=== PATIENT | female | born 1965 | race Caucasian/White ===

== ENCOUNTER 2020-03-10 23:12 | Observation (INO) | payer BC ==
[2020-03-11] MEDS ORDERED: MORPHINE SULFATE 2 MG INJ IV ONE (00:17)
[2020-03-11] MEDS ORDERED: Zofran 4 MG/2 ML VIAL IV ONE (00:17)
[2020-03-11] MEDS ORDERED: Sodium Chloride 0.9% 1000 ML 1,000 ML IV STA (00:17)
--- NOTE | 2020-03-11 00:23 | ERPHSYRPT ---
- History of Present Illness Time Seen by Provider: 03/11/20 01:00 Historian: patient Physician History: Patient is a 54-year-old female presents to our ED with complaints of epigastric pain. Pain started approximately 11 days ago. Pain resolved and recurred 4 days ago. Pain described as an ache that is well localized to the epigastrium. Patient has been tolerating her pain for the past 4 days. She is here tonight because she vomited twice and unable to hold food at this time. No trauma. No fevers. No diarrhea. No rash. No history of the same. Symptoms are mild to moderate in intensity. No specific worsening or improving factors. Patient voices no other complaints at this time. Timing/Duration: day(s) (4 days ago.) Activities at Onset: none Quality: aching Abdominal Pain Onset Location: epigastric Pain Radiation: no radiation Severity of Pain-Max: moderate Severity of Pain-Current: mild Modifying Factors: Improves With: movement Associated Symptoms: No chest pain, No diaphoresis, No diarrhea, No fever/chills, No headache, No heartburn, No neck pain, No shortness of breath, No testicular pain, No vomiting Previous symptoms: no prior history Allergies/Adverse Reactions: No Known Drug Allergies Allergy (Unverified 03/10/20 23:57) - Review of Systems Constitutional: No Symptoms, No Fever, No Chills Eyes: No Symptoms Ears, Nose, & Throat: No Symptoms Respiratory: No Symptoms, No Cough, No Dyspnea Cardiac: No Symptoms, No Chest Pain, No Edema, No Syncope Abdominal/Gastrointestinal: No Symptoms, No Abdominal Pain, No Nausea, No Vomiting, No Diarrhea Genitourinary Symptoms: No Symptoms, No Dysuria Musculoskeletal: No Symptoms, No Back Pain, No Neck Pain Skin: No Symptoms, No Rash Neurological: No Symptoms, No Dizziness, No Focal Weakness, No Sensory Changes Psychological: No Symptoms Endocrine: No Symptoms Hematologic/Lymphatic: No Symptoms Immunological/Allergic: No Symptoms All Other Systems: Reviewed and Negative - Nursing Vital Signs Nursing Vital Signs: Initial Vital Signs Temperature 98.3 F 03/10/20 23:59 Pulse Rate 84 03/10/20 23:59 Blood Pressure 163/99 03/10/20 23:59 O2 Sat by Pulse Oximetry 96 03/10/20 23:59 Pain Scale Pain Intensity 8 - Physical Exam General Appearance: no apparent distress, alert Eye Exam: PERRL/EOMI, eyes nml inspection Ears, Nose, Throat Exam: normal ENT inspection, pharynx normal, moist mucous membranes Neck Exam: normal inspection, non-tender, supple, full range of motion Respiratory Exam: normal breath sounds, lungs clear, No respiratory distress Cardiovascular Exam: regular rate/rhythm, normal heart sounds Gastrointestinal/Abdomen Exam: soft, tenderness, other (Epigastric tenderness to palpation. No rebound or peritoneal signs. Negative Oxford sign negative Diaz Potter sign.), No mass Back Exam: normal inspection, normal range of motion, No CVA tenderness, No vertebral tenderness Extremity Exam: normal inspection, normal range of motion, pelvis stable Neurologic Exam: alert, oriented x 3, cooperative, normal mood/affect, nml cerebellar function, sensation nml, No motor deficits Skin Exam: normal color, warm, dry SpO2 Interpretation: normal SpO2: 98 O2 Delivery: Room Air - Course Nursing assessment & vital signs reviewed: Yes EKG Interpreted by Me: RATE (72), Sinus Rhythm, NORMAL AXIS, NORMAL INTERVALS - CT Exams Abdomen/Pelvis CT Interpretation: Tele-radiologist Report (Findings most likely represent acute cholecystitis. There is a small amount of gas in the urinary bladder. Please correlate for evidence of infection or recent catheterization.) Ordered Tests: Active Orders 24 hr Category Date Time Status EKG-ER Only STAT Care 03/11/20 00:17 Active IV Insertion STAT Care 03/11/20 00:17 Active ABDOMEN AND PELVIS W CONTRAST [CT] Stat Exams 03/11/20 00:18 Taken CBC W DIFF Stat Lab 03/11/20 00:34 Completed CMP Stat Lab 03/11/20 00:34 Completed CULTURE,URINE Stat Lab 03/11/20 00:34 Received LIPASE Stat Lab 03/11/20 00:34 Completed TROPONIN Q3H Lab 03/11/20 00:34 Completed TROPONIN Q3H Lab 03/11/20 03:36 Received TROPONIN Q3H Lab 03/11/20 06:30 Ordered TROPONIN Q3H Lab 03/11/20 09:30 Ordered TROPONIN Q3H Lab 03/11/20 12:30 Ordered UA W/RFX UR CULTURE Stat Lab 03/11/20 00:34 Completed Transfer Order Routine Transfer 03/11/20 Ordered Medication Summary Generic Name Dose Route Start Last Admin Trade Name Freq PRN Reason Stop Dose Admin Levofloxacin/Dextrose 500 mg in 100 mls @ 100 mls/hr 03/11/20 04:00 Levofloxacin 500mg/100ml D5w IV 03/11/20 04:59 STAT STA Discontinued Medications Generic Name Dose Route Start Last Admin Trade Name Leesa PRN Reason Stop Dose Admin Sodium Chloride 1,000 mls @ 999 mls/hr 03/11/20 00:17 03/11/20 01:34 Sodium Chloride 0.9% 1000 Ml IV 03/11/20 01:17 Infused .Q1H1M STA Infusion Sodium Chloride Confirm 03/11/20 00:32 Sodium Chloride 0.9% 1000 Ml Administered 03/11/20 00:33 Dose 1,000 mls @ ud .ROUTE .STK-MED ONE Metronidazole 500 mg in 100 mls @ 200 mls/hr 03/11/20 04:01 Flagyl 500 Mg Ivpb IV 03/11/20 04:30 STAT STA Morphine Sulfate 2 mg 03/11/20 00:17 03/11/20 00:36 Morphine Sulfate 2 Mg Inj IV 03/11/20 00:18 2 mg STAT ONE Administration Morphine Sulfate Confirm 03/11/20 00:32 Morphine Sulfate 2 Mg Inj Administered 03/11/20 00:33 Dose 2 mg .ROUTE .STK-MED ONE Morphine Sulfate 4 mg 03/11/20 02:18 03/11/20 02:22 Morphine Sulfate 4 Mg Inj IV 03/11/20 02:19 4 mg STAT ONE Administration Morphine Sulfate Confirm 03/11/20 02:21 Morphine Sulfate 4 Mg Inj Administered 03/11/20 02:22 Dose 4 mg .ROUTE .STK-MED ONE Morphine Sulfate 4 mg 03/11/20 04:00 Morphine Sulfate 4 Mg Inj IV 03/11/20 04:01 STAT ONE Ondansetron HCl 4 mg 03/11/20 00:17 03/11/20 00:37 Zofran 4 Mg/2 Ml Vial IV 03/11/20 00:18 4 mg STAT ONE Administration Ondansetron HCl Confirm 03/11/20 00:31 Zofran 4 Mg/2 Ml Vial Administered 03/11/20 00:32 Dose 4 mg .ROUTE .STK-MED ONE Lab/Rad Data: Laboratory Result Diagrams 03/11/20 00:34 03/11/20 00:34 Laboratory Results 03/11/20 03/11/20 03/11/20 Range/Units 00:34 00:34 00:34 WBC (4.0-10.5) K/mm3 RBC (4.1-5.4) M/mm3 Hgb (12.0-16.0) gm/dl Hct (35-47) % MCV (78-100) fl MCH (26-32) pg MCHC (32-36) g/dl RDW (11.5-14.0) % Plt Count (150-450) K/mm3 MPV (7.5-11.0) fl Gran % (36.0-66.0) % Eos # (Auto) (0-0.5) Absolute Lymphs (auto) (1.0-4.6) Absolute Monos (auto) (0.0-1.3) Lymphocytes % (24.0-44.0) % Monocytes % (0.0-12.0) % Eosinophils % (0.00-5.0) % Basophils % (0.0-0.4) % Absolute Granulocytes (1.4-6.9) Basophils # (0-0.4) Sodium 136 L (137-145) mmol/L Potassium 4.0 (3.5-5.1) mmol/L Chloride 102 (98-107) mmol/L Carbon Dioxide 26 (22-30) mmol/L Anion Gap 13.3 (5-15) MEQ/L BUN 13 (7-17) mg/dL Creatinine 0.67 (0.52-1.04) mg/dL Estimated GFR > 60.0 ML/MIN Glucose 126 H (74-106) mg/dL Calcium 9.6 (8.4-10.2) mg/dL Total Bilirubin 1.00 (0.2-1.3) mg/dL AST 24 (14-36) U/L ALT 17 (0-35) U/L Alkaline Phosphatase 86 (38-126) U/L Troponin I < 0.012 (0.000-0.034) ng/mL Serum Total Protein 7.7 (6.3-8.2) g/dL Albumin 4.5 (3.5-5.0) g/dL Lipase 66 (23-300) U/L Urine Color YELLOW (YELLOW) Urine Appearance SLIGHTLY CLOUDY (CLEAR) Urine pH 6.0 (5-6) Ur Specific [place] 1.019 (1.005-1.025) Urine Protein NEGATIVE (Negative) Urine Ketones NEGATIVE (NEGATIVE) Urine Blood MODERATE (0-5) Ruben/ul Urine Nitrite NEGATIVE (NEGATIVE) Urine Bilirubin NEGATIVE (NEGATIVE) Urine Urobilinogen NEGATIVE (0-1) mg/dL Ur Leukocyte Esterase TRACE (NEGATIVE) Urine WBC (Auto) 6-10 (0-5) /HPF Urine RBC (Auto) 6-10 (0-2) /HPF U Epithel Cells (Auto) RARE (FEW) /HPF Urine Bacteria (Auto) NONE (NEGATIVE) /HPF Urine Mucus (Auto) SLIGHT (NEGATIVE) /HPF Urine Culture Reflexed YES (NO) Urine Glucose NEGATIVE (NEGATIVE) mg/dL 03/11/20 Range/Units 00:34 WBC 16.0 H (4.0-10.5) K/mm3 RBC 4.83 (4.1-5.4) M/mm3 Hgb 13.6 (12.0-16.0) gm/dl Hct 42.2 (35-47) % MCV 87.4 (78-100) fl MCH 28.2 (26-32) pg MCHC 32.2 (32-36) g/dl RDW 14.9 H (11.5-14.0) % Plt Count 322 (150-450) K/mm3 MPV 11.2 H (7.5-11.0) fl Gran % 83.6 H (36.0-66.0) % Eos # (Auto) 0.07 (0-0.5) Absolute Lymphs (auto) 1.61 (1.0-4.6) Absolute Monos (auto) 0.93 (0.0-1.3) Lymphocytes % 10.0 L (24.0-44.0) % Monocytes % 5.8 (0.0-12.0) % Eosinophils % 0.4 (0.00-5.0) % Basophils % 0.2 (0.0-0.4) % Absolute Granulocytes 13.38 H (1.4-6.9) Basophils # 0.03 (0-0.4) Sodium (137-145) mmol/L Potassium (3.5-5.1) mmol/L Chloride (98-107) mmol/L Carbon Dioxide (22-30) mmol/L Anion Gap (5-15) MEQ/L BUN (7-17) mg/dL Creatinine (0.52-1.04) mg/dL Estimated GFR ML/MIN Glucose (74-106) mg/dL Calcium (8.4-10.2) mg/dL Total Bilirubin (0.2-1.3) mg/dL AST (14-36) U/L ALT (0-35) U/L Alkaline Phosphatase (38-126) U/L Troponin I (0.000-0.034) ng/mL Serum Total Protein (6.3-8.2) g/dL Albumin (3.5-5.0) g/dL Lipase (23-300) U/L Urine Color (YELLOW) Urine Appearance (CLEAR) Urine pH (5-6) Ur Specific Clinton (1.005-1.025) Urine Protein (Negative) Urine Ketones (NEGATIVE) Urine Blood (0-5) Ruben/ul Urine Nitrite (NEGATIVE) Urine Bilirubin (NEGATIVE) Urine Urobilinogen (0-1) mg/dL Ur Leukocyte Esterase (NEGATIVE) Urine WBC (Auto) (0-5) /HPF Urine RBC (Auto) (0-2) /HPF U Epithel Cells (Auto) (FEW) /HPF Urine Bacteria (Auto) (NEGATIVE) /HPF Urine Mucus (Auto) (NEGATIVE) /HPF Urine Culture Reflexed (NO) Urine Glucose (NEGATIVE) mg/dL - Progress Progress: improved Progress Note: 03/11/20 04:21 Patient reassessed. Pain improved. Work-up reveals a cholelithiasis with a large gall stone sitting in the neck of the gallbladder. There may be superimposed cholecystitis. Patient additionally has a urinary tract infection. Pain well controlled. Antibiotics infused. We will admit patient to Dr. Doyle. Dr. Doyle admission to observation. Patient agrees to admission to [facility] for further evaluation and treatment. Patient voices no other complaints concerns at this time. Discussed with : Chase Will see patient in: hospital (observation) Counseled pt/family regarding: lab results, diagnosis, need for follow-up, rad results - Departure Departure Disposition: Observation Clinical Impression: Cholecystitis, Cholelithiasis, UTI (urinary tract infection) Condition: Stable Critical Care Time: No Referrals: MARY VICKERS MD [Primary Care Provider] -
[2020-03-11] MEDS ORDERED: Zofran 4 MG/2 ML VIAL ONE (00:31)
[2020-03-11] MEDS ORDERED: Sodium Chloride 0.9% 1000 ML 1,000 ML ONE (00:32)
[2020-03-11] MEDS ORDERED: MORPHINE SULFATE 2 MG INJ ONE (00:32)
[2020-03-11 00:37] LABS: Absolute Neutrophil Ct (ANC) 13.38 (1.4-6.9); BASOPHIL % 0.2 % (0.0-0.4); Basophil (Absolute #) 0.03 (0-0.4); Eosinophil % 0.4 % (0.00-5.0); Eosinophil (Absolute #) 0.07 (0-0.5); Hematocrit 42.2 % (35-47); Hemoglobin 13.6 gm/dl (12.0-16.0); Lymphocyte (Absolute #) 1.61 (1.0-4.6); Mean Cell Volume 87.4 fl (78-100); Mean Corpuscular Hemoglobin 28.2 pg (26-32); Mean Corpuscular Hgb Concent. 32.2 g/dl (32-36); Mean Platelet Volume 11.2 fl (7.5-11.0); Monocyte (Absolute #) 0.93 (0.0-1.3); Monocytes % 5.8 % (0.0-12.0); Neutrophil % 83.6 % (36.0-66.0); Platelet Count 322 K/mm3 (150-450); Red Blood Count 4.83 M/mm3 (4.1-5.4); Red Cell Distribution Width 14.9 % (11.5-14.0)
[2020-03-11 00:43] LABS: Appearance SLIGHTLY CLOUDY (CLEAR); Bilirubin NEGATIVE (NEGATIVE); Blood MODERATE Ery/ul (0-5); Epithelial Cells RARE /HPF (FEW); Glucose NEGATIVE (NEGATIVE); Ketones NEGATIVE (NEGATIVE); Leukocyte Esterase TRACE (NEGATIVE); Mucus SLIGHT /HPF (NEGATIVE); Nitrite NEGATIVE (NEGATIVE); Protein,Urine Dip NEGATIVE (Negative); Specific Gravity 1.019 (1.005-1.025); Urobilinogen NEGATIVE mg/dL (0-1)
[2020-03-11 00:53] LABS: ALBUMIN 4.5 g/dL (3.5-5.0); ALKALINE PHOSPHATASE 86 U/L (38-126); ANION GAP 13.3 MEQ/L (5-15); BLOOD UREA NITROGEN 13 mg/dL (7-17); CHLORIDE 102 mmol/L (98-107); Calcium 9.6 mg/dL (8.4-10.2); Carbon Dioxide 26 mmol/L (22-30); Creatinine 1 0.67 mg/dL (0.52-1.04); Glucose 126 mg/dL (74-106); LIPASE 66 U/L (23-300); SGOT/AST 24 U/L (14-36); SGPT/ALT 17 U/L (0-35); SODIUM 136 mmol/L (137-145); Total Protein 7.7 g/dL (6.3-8.2)
[2020-03-11] MEDS ORDERED: MORPHINE SULFATE 4 MG INJ IV ONE ×2 (02:18→04:00)
[2020-03-11] MEDS ORDERED: MORPHINE SULFATE 4 MG INJ ONE ×2 (02:21→04:32)
[2020-03-11] MEDS ORDERED: Levofloxacin 500MG/100ML D5W 500 MG/100 ML BAG IV STA (04:00)
[2020-03-11] MEDS ORDERED: FLAGYL 500 MG IVPB 500 MG/100 ML BAG IV STA (04:01)
[2020-03-11] MEDS ORDERED: Levofloxacin 500MG/100ML D5W 500 MG/100 ML BAG IV ONE (04:33)
[2020-03-11] MEDS ORDERED: FLAGYL 500 MG IVPB 500 MG/100 ML BAG IV ONE (04:33)
[2020-03-11] MEDS ORDERED: MORPHINE SULFATE 4 MG INJ IV PRN (05:52)
[2020-03-11] MEDS: Sodium Chloride 0.9% 1000 ML 1,000 ML IV SCH ×2 (05:58→16:25)
[2020-03-11] MEDS: DILAUDID 2 MG INJECTION IV PRN ×7 (07:26→23:12)
--- NOTE | 2020-03-11 08:44 | PCM.HP ---
History of Present Illness - Chief Complaint Chief Complaint: cholelithiasis Date: 03/11/20 History of Present Illness: is a 54 year old female. - Review of Systems Constitutional: No Fever, No Chills Eyes: No Symptoms Ears, Nose, & Throat: No Symptoms Respiratory: No Cough, No Short Of Breath Cardiac: No Chest Pain, No Edema, No Syncope Abdominal/Gastrointestinal: Abdominal Pain, Nausea, Vomiting, No Diarrhea Genitourinary Symptoms: No Dysuria Musculoskeletal: No Back Pain, No Neck Pain Skin: No Rash Neurological: No Dizziness, No Focal Weakness, No Sensory Changes Psychological: No Symptoms Endocrine: No Symptoms Hematologic/Lymphatic: No Symptoms Immunological/Allergic: No Symptoms Medications & Allergies Home Medications: Home Medication List Ergocalciferol (Vitamin D2) [Vitamin D] 1 mg PO DAILY 03/11/20 [History Confirmed 03/11/20] Allergies/Adverse Reactions: Allergies Allergy/AdvReac Type Severity Reaction Status Date / Time No Known Drug Allergies Allergy Unverified 03/10/20 23:57 - Past Medical History Past Medical History: No Neurological History: No Pertinent History ENT History: No Pertinent History Cardiac History: No Pertinent History Respiratory History: No Pertinent History Endocrine Medical History: No Pertinent History Musculoskelatal History: No Pertinent History GI Medical History: No Pertinent History History: No Pertinent History Pyscho-Social History: No Pertinent History Reproductive Disorders: No Pertinent History - Female History Are you now?: No - Past Surgical History Past Surgical History: Yes Neuro Surgical History: No Pertinent History Cardiac History: No Pertinent History Respiratory Surgery: No Pertinent History GI Surgical History: No Pertinent History Genitourinary Surgical Hx: No Pertinent History Musculskeletal Surgical Hx: No Pertinent History Female Surgical History: Hysterectomy Other Surgical History: 3- c sections - Social History Smoking Status: Never smoker Exposure to second hand smoke: No Alcohol: None Drug Use: none - Physical Exam Vital Signs: Vital Signs - 24 hr Temp Pulse Resp BP Pulse Ox 03/11/20 08:03 99.0 F 82 16 185/84 93 L 03/11/20 06:12 98.8 F 84 18 189/79 96 03/11/20 05:52 96 03/11/20 05:48 98.8 F 84 18 189/79 96 03/11/20 05:15 79 175/100 96 03/11/20 04:30 98 03/11/20 04:25 79 168/109 96 03/11/20 03:26 79 176/97 98 03/11/20 02:14 74 165/96 99 03/11/20 01:05 73 174/108 97 03/10/20 23:59 98.3 F 84 163/99 96 General Appearance: no apparent distress, alert Neurologic Exam: alert, oriented x 3, cooperative, normal mood/affect, nml cere bellar function, nml station & gait, sensation nml, No motor deficits Eye Exam: PERRL/EOMI, eyes nml inspection Ears, Nose, Throat Exam: normal ENT inspection, TMs normal, pharynx normal, moist mucous membranes Neck Exam: normal inspection, non-tender, supple, full range of motion Respiratory Exam: normal breath sounds, lungs clear, No respiratory distress Cardiovascular Exam: regular rate/rhythm, normal heart sounds, normal peripheral pulses Gastrointestinal/Abdomen Exam: soft, normal bowel sounds, tenderness, No distention, No mass Back Exam: normal inspection, normal range of motion, No CVA tenderness, No vertebral tenderness Extremity Exam: normal inspection, normal range of motion, pelvis stable Skin Exam: normal color, warm, dry, No rash Lymphatic Exam: No adenopathy Results - Labs Lab/Micro Results: Lab Results-Last 24 Hours 03/11/20 03/11/20 03/11/20 Range/Units 00:34 00:34 00:34 WBC 16.0 H (4.0-10.5) K/mm3 RBC 4.83 (4.1-5.4) M/mm3 Hgb 13.6 (12.0-16.0) gm/dl Hct 42.2 (35-47) % MCV 87.4 (78-100) fl MCH 28.2 (26-32) pg MCHC 32.2 (32-36) g/dl RDW 14.9 H (11.5-14.0) % Plt Count 322 (150-450) K/mm3 MPV 11.2 H (7.5-11.0) fl Gran % 83.6 H (36.0-66.0) % Eos # (Auto) 0.07 (0-0.5) Absolute Lymphs (auto) 1.61 (1.0-4.6) Absolute Monos (auto) 0.93 (0.0-1.3) Lymphocytes % 10.0 L (24.0-44.0) % Monocytes % 5.8 (0.0-12.0) % Eosinophils % 0.4 (0.00-5.0) % Basophils % 0.2 (0.0-0.4) % Absolute Granulocytes 13.38 H (1.4-6.9) Basophils # 0.03 (0-0.4) Sodium 136 L (137-145) mmol/L Potassium 4.0 (3.5-5.1) mmol/L Chloride 102 (98-107) mmol/L Carbon Dioxide 26 (22-30) mmol/L Anion Gap 13.3 (5-15) MEQ/L BUN 13 (7-17) mg/dL Creatinine 0.67 (0.52-1.04) mg/dL Estimated GFR > 60.0 ML/MIN Glucose 126 H (74-106) mg/dL Calcium 9.6 (8.4-10.2) mg/dL Total Bilirubin 1.00 (0.2-1.3) mg/dL AST 24 (14-36) U/L ALT 17 (0-35) U/L Alkaline Phosphatase 86 (38-126) U/L Troponin I < 0.012 (0.000-0.034) ng/mL Serum Total Protein 7.7 (6.3-8.2) g/dL Albumin 4.5 (3.5-5.0) g/dL Lipase 66 (23-300) U/L Urine Color (YELLOW) Urine Appearance (CLEAR) Urine pH (5-6) Ur Specific Seg[place] (1.005-1.025) Urine Protein (Negative) Urine Ketones (NEGATIVE) Urine Blood (0-5) Ruben/ul Urine Nitrite (NEGATIVE) Urine Bilirubin (NEGATIVE) Urine Urobilinogen (0-1) mg/dL Ur Leukocyte Esterase (NEGATIVE) Urine WBC (Auto) (0-5) /HPF Urine RBC (Auto) (0-2) /HPF U Epithel Cells (Auto) (FEW) /HPF Urine Bacteria (Auto) (NEGATIVE) /HPF Urine Mucus (Auto) (NEGATIVE) /HPF Urine Culture Reflexed (NO) Urine Glucose (NEGATIVE) mg/dL 03/11/20 03/11/20 03/11/20 Range/Units 00:34 03:36 06:45 WBC (4.0-10.5) K/mm3 RBC (4.1-5.4) M/mm3 Hgb (12.0-16.0) gm/dl Hct (35-47) % MCV (78-100) fl MCH (26-32) pg MCHC (32-36) g/dl RDW (11.5-14.0) % Plt Count (150-450) K/mm3 MPV (7.5-11.0) fl Gran % (36.0-66.0) % Eos # (Auto) (0-0.5) Absolute Lymphs (auto) (1.0-4.6) Absolute Monos (auto) (0.0-1.3) Lymphocytes % (24.0-44.0) % Monocytes % (0.0-12.0) % Eosinophils % (0.00-5.0) % Basophils % (0.0-0.4) % Absolute Granulocytes (1.4-6.9) Basophils # (0-0.4) Sodium (137-145) mmol/L Potassium (3.5-5.1) mmol/L Chloride (98-107) mmol/L Carbon Dioxide (22-30) mmol/L Anion Gap (5-15) MEQ/L BUN (7-17) mg/dL Creatinine (0.52-1.04) mg/dL Estimated GFR ML/MIN Glucose (74-106) mg/dL Calcium (8.4-10.2) mg/dL Total Bilirubin (0.2-1.3) mg/dL AST (14-36) U/L ALT (0-35) U/L Alkaline Phosphatase (38-126) U/L Troponin I < 0.012 < 0.012 (0.000-0.034) ng/mL Serum Total Protein (6.3-8.2) g/dL Albumin (3.5-5.0) g/dL Lipase (23-300) U/L Urine Color YELLOW (YELLOW) Urine Appearance SLIGHTLY CLOUDY (CLEAR) Urine pH 6.0 (5-6) Ur Specific [place] 1.019 (1.005-1.025) Urine Protein NEGATIVE (Negative) Urine Ketones NEGATIVE (NEGATIVE) Urine Blood MODERATE (0-5) Ruben/ul Urine Nitrite NEGATIVE (NEGATIVE) Urine Bilirubin NEGATIVE (NEGATIVE) Urine Urobilinogen NEGATIVE (0-1) mg/dL Ur Leukocyte Esterase TRACE (NEGATIVE) Urine WBC (Auto) 6-10 (0-5) /HPF Urine RBC (Auto) 6-10 (0-2) /HPF U Epithel Cells (Auto) RARE (FEW) /HPF Urine Bacteria (Auto) NONE (NEGATIVE) /HPF Urine Mucus (Auto) SLIGHT (NEGATIVE) /HPF Urine Culture Reflexed YES (NO) Urine Glucose NEGATIVE (NEGATIVE) mg/dL - Radiology Impressions Radiology Exams & Impressions: Radiology Procedures Category Date Time Status ABDOMEN AND PELVIS W CONTRAST [CT] Stat Exams 03/11/20 00:18 Taken GALLBLADDER [US] Routine Exams 03/11/20 08:03 Taken Assessment/Plan (1) Cholecystitis Current Visit: Yes Status: Acute Assessment & Plan: IV antibiotics Code(s): K81.9 - CHOLECYSTITIS, UNSPECIFIED (2) Cholelithiasis Current Visit: Yes Status: Acute Assessment & Plan: confirm with u/s, consult surgery (3) UTI (urinary tract infection) Current Visit: Yes Status: Acute Assessment & Plan: Iv antibiotics Code(s): N39.0 - URINARY TRACT INFECTION, SITE NOT SPECIFIED
--- NOTE | 2020-03-11 09:12 | XRAY ---
Indication: Abdomen pain with nausea, vomiting, and diarrhea. Multiple contiguous axial images obtained through the abdomen and pelvis using 80 cc Isovue 370 contrast only. Comparison: None. Lung bases demonstrates minimal atelectasis/scarring without infiltrate or effusion. Heart is not enlarged. Small hiatal hernia. Noncontrasted stomach and bowel loops remain nonobstructed. Normal appendix. Abnormal distended gallbladder with 2.6 cm gallstone, gravel/sludge and minimal pericholecystic stranding concerning for acute cholecystitis. No free fluid/air. Previous hysterectomy. Urinary bladder demonstrates tiny intraluminal air bubbles either iatrogenic from recent catheterization versus gas-forming bacterial infection. Remaining liver, pancreas, spleen, adrenal glands, kidneys, ureters, bladder and aorta appear unremarkable. No pathologic retroperitoneal lymphadenopathy. Osseous structures intact with minimal degenerative changes throughout the thoracolumbar spine. Bilateral L5 spondylolysis without spondylolisthesis. Impression: 1. Abnormal distended gallbladder with cholelithiasis, gravel/sludge, and pericholecystic stranding. Rule out acute cholecystitis. 2. Urinary bladder intraluminal air bubbles either iatrogenic versus gas-forming bacterial infection. 3. Incidental small hiatal hernia and L5 spondylolysis without spondylolisthesis. Comment: Preliminary interpretation was made by C. No critical discrepancy.
--- NOTE | 2020-03-11 09:14 | XRAY ---
Indication: Abdomen pain. Abnormal gallbladder on same day CT. Two-dimensional gallbladder sonogram performed. Comparison: None Gallbladder mildly distended with 3.7 cm gallstone and mild sludge. Abnormal gallbladder wall thickening up to 14.2 mm. No pericholecystic fluid. Common bile duct measures 7.6 mm. No intrahepatic biliary distention. Remaining visualized pancreas, pancreas, and right kidney sonographically unremarkable. Right kidney measures 11.5 cm in length. No ascites. Impression: Distended gallbladder with cholelithiasis, sludge, and abnormal wall thickening. Rule out chronic cholecystitis.
[2020-03-11] MEDS: ROCEPHIN 1 Gm-D5w 50 ml Bag** 1 G/50 ML IVPB IV SCH (10:28)
[2020-03-11] MEDS ORDERED: MEFOXIN 2 GM PREMIX** 2 GM/50 ML ML IV SCH (13:00)
[2020-03-12] MEDS: Sodium Chloride 0.9% 1000 ML 1,000 ML IV SCH ×2 (03:46→19:47)
[2020-03-12 05:56] LABS: Hematocrit 39.8 % (35-47); Hemoglobin 12.4 gm/dl (12.0-16.0); Mean Cell Volume 90.7 fl (78-100); Mean Corpuscular Hemoglobin 28.2 pg (26-32); Mean Corpuscular Hgb Concent. 31.2 g/dl (32-36); Mean Platelet Volume 11.2 fl (7.5-11.0); Platelet Count 270 K/mm3 (150-450); Red Blood Count 4.39 M/mm3 (4.1-5.4); Red Cell Distribution Width 15.4 % (11.5-14.0); White Blood Count 23.5 K/mm3 (4.0-10.5)
[2020-03-12] MEDS: TYLENOL 325 MG PO PRN (05:57)
[2020-03-12 06:27] LABS: ALBUMIN 3.5 g/dL (3.5-5.0); ALKALINE PHOSPHATASE 71 U/L (38-126); ANION GAP 10.8 MEQ/L (5-15); BLOOD UREA NITROGEN 12 mg/dL (7-17); CHLORIDE 100 mmol/L (98-107); Calcium 8.8 mg/dL (8.4-10.2); Carbon Dioxide 27 mmol/L (22-30); Creatinine 1 0.81 mg/dL (0.52-1.04); Glucose 107 mg/dL (74-106); Potassium 4.5 mmol/L (3.5-5.1); SGOT/AST 26 U/L (14-36); SGPT/ALT 13 U/L (0-35); SODIUM 132 mmol/L (137-145); Total Protein 6.7 g/dL (6.3-8.2)
[2020-03-12 06:47] LABS: TROPONIN < 0.012 ng/mL (0.000-0.034)
[2020-03-12 07:08] LABS: Eosinophil 1 % (0.00-3.0); Lymphocytes 19 % (24-44); Monocyte 5 % (0.0-12.0); Neutrophils 75 % (36.0-66.0); Total Cells Counted 100
[2020-03-12 07:09] LABS: Platelet Estimate NORMAL (NORMAL)
[2020-03-12] MEDS ORDERED: TORAdol 30 mg Injection ONE (07:12)
[2020-03-12] MEDS ORDERED: DIPRIVAN 200 MG/20 ML IV ONE (07:12)
[2020-03-12] MEDS ORDERED: SUBLIMAZE 100 MCG/2 ML ONE ×3 (07:12→10:04)
[2020-03-12] MEDS ORDERED: Zemuron 100 MG/10 ML ONE ×3 (07:12→08:46)
[2020-03-12] MEDS ORDERED: BRIDION 200MG/2ML IV ONE (07:12)
[2020-03-12] MEDS ORDERED: Decadron 4 MG INJ ONE (07:12)
[2020-03-12] MEDS ORDERED: Zofran 4 MG/2 ML VIAL ONE (07:12)
[2020-03-12] MEDS ORDERED: Xylocaine-Mpf 2% 5 Ml Vial ONE (07:12)
[2020-03-12] MEDS ORDERED: Lactated Ringers 1,000 ML IV ONE (07:50)
[2020-03-12] MEDS ORDERED: Sensorcaine 0.25% 10 ML ONE (08:32)
[2020-03-12] MEDS ORDERED: DILAUDID 2 MG INJECTION ONE (09:50)
[2020-03-12] MEDS ORDERED: VITAMIN D2 PO SCH (10:00)
[2020-03-12] MEDS ORDERED: MORPHINE SULFATE 4 MG INJ IV PRN (11:15)
[2020-03-12] MEDS ORDERED: Zofran 4 MG/2 ML VIAL IV PRN (11:18)
[2020-03-12] MEDS ORDERED: NORCO 5/325 MG PO PRN (11:20)
[2020-03-12] MEDS: ROCEPHIN 1 Gm-D5w 50 ml Bag** 1 G/50 ML IVPB IV SCH (11:47)
[2020-03-12] MEDS: VITAMIN D PO SCH (11:48)
[2020-03-12] MEDS: Lactated Ringers 1,000 ML IV SCH ×2 (19:46→19:47)
[2020-03-12] MEDS: DILAUDID 2 MG INJECTION IV PRN (21:07)
[2020-03-13] MEDS: Sodium Chloride 0.9% 1000 ML 1,000 ML IV SCH (01:15)
[2020-03-13 05:48] LABS: Hematocrit 34.3 % (35-47); Hemoglobin 10.6 gm/dl (12.0-16.0); Mean Corpuscular Hemoglobin 28.1 pg (26-32); Mean Corpuscular Hgb Concent. 30.9 g/dl (32-36); Mean Platelet Volume 11.2 fl (7.5-11.0); Platelet Count 250 K/mm3 (150-450); Red Blood Count 3.77 M/mm3 (4.1-5.4); Red Cell Distribution Width 15.2 % (11.5-14.0); White Blood Count 17.6 K/mm3 (4.0-10.5)
[2020-03-13] MEDS: ROCEPHIN 1 Gm-D5w 50 ml Bag** 1 G/50 ML IVPB IV SCH (10:36)
[2020-03-13] MEDS: Zosyn 3.375 GM Vial 3.375 GM in Sodium Chloride 100ML MINI-BAG PLUS 100 ML IV SCH ×2 (11:33→19:20)
[2020-03-13] MEDS: VITAMIN D PO SCH (11:34)
[2020-03-13 14:00] LABS: ALBUMIN 3.1 g/dL (3.5-5.0); BILIRUBIN,TOTAL 0.5 mg/dL (0.2-1.3); Direct Bilirubin 0.2 mg/dL (0.0-0.4); Total Protein 6.1 g/dL (6.3-8.2)
[2020-03-13] MEDS: TYLENOL 325 MG PO PRN (21:45)
[2020-03-14] MEDS: Zosyn 3.375 GM Vial 3.375 GM in Sodium Chloride 100ML MINI-BAG PLUS 100 ML IV SCH ×3 (00:58→13:27)
[2020-03-14 04:51] LABS: Hematocrit 33.8 % (35-47); Hemoglobin 10.4 gm/dl (12.0-16.0); Mean Cell Volume 91.8 fl (78-100); Mean Corpuscular Hemoglobin 28.3 pg (26-32); Mean Corpuscular Hgb Concent. 30.8 g/dl (32-36); Mean Platelet Volume 10.7 fl (7.5-11.0); Platelet Count 277 K/mm3 (150-450); Red Blood Count 3.68 M/mm3 (4.1-5.4); Red Cell Distribution Width 15.4 % (11.5-14.0)
[2020-03-14 05:16] LABS: ANION GAP 7.8 MEQ/L (5-15); BLOOD UREA NITROGEN 18 mg/dL (7-17); CHLORIDE 106 mmol/L (98-107); Calcium 8.7 mg/dL (8.4-10.2); Carbon Dioxide 29 mmol/L (22-30); Creatinine 1 0.91 mg/dL (0.52-1.04); Glucose 90 mg/dL (74-106); Potassium 4.7 mmol/L (3.5-5.1); SODIUM 138 mmol/L (137-145)
[2020-03-14] MEDS: VITAMIN D PO SCH (10:11)
--- NOTE | 2020-03-14 10:17 | CONS ---
CONSULT DATE: 03/11/2020 HISTORY: Ildefonso Delvalle had her first episode of major discomfort about ten days ago. It resided fairly shortly. Four days ago it started again this time it did not back off. She presented to the emergency room through the night. She was seen and examined at the bedside. She is obviously in discomfort. Her chart is reviewed. PHYSICAL EXAMINATION: ABDOMEN: She is moderately obese and she is at [facility] and she has a little referred pain to [facility]. She has no palpable mass. LAB DATA AND TESTS: Her ultrasound showed a thick walled gallbladder with pericholecystic fluid with stones and sludge. Her total bilirubin was 1.0. Her lipase is satisfactory. IMPRESSION: Van discussion concerning acute cholecystitis/cholelithiasis. She is on IV fluids, NPO, antibiotics. Surgical intervention tomorrow morning with Dr. Blanc. Laparoscopic cholecystectomy was discussed and she wishes to proceed. PLAN: Laparoscopic possible open.
--- NOTE | 2020-03-14 10:29 | PCM.DS ---
Discharge Summary Date of Admission: 03/11/20 05:24 Date of Discharge: 03/14/20 Admitting Physician: ANTONETTE DEMARCO Consults: Consults on Case 03/11/20 08:48 Consult Surgery ROUTINE Primary Care Provider: MARY LIMA Allergies Allergies No Known Drug Allergies Allergy (Unverified 03/10/20 23:57) Hospital Summary - Hospital Course Hospital Course: Patient is a 54-year-old female presents to our ED with complaints of epigastric pain. Pain started approximately 11 days ago. Pain resolved and recurred 4 days ago. Pain described as an ache that is well localized to the epigastrium. Patient has been tolerating her pain for the past 4 days. She is here tonight because she vomited twice and unable to hold food at this time. No trauma. No fevers. No diarrhea. No rash. No history of the same. Symptoms are mild to moderate in intensity. No specific worsening or improving factors. Patient voices no other complaints at this time. - Vitals & Intake/Output Vital Signs: Vital Signs Temperature 99.0 F 03/14/20 07:23 Pulse Rate 74 03/14/20 07:23 Respiratory Rate 16 03/14/20 07:23 Blood Pressure 164/70 03/14/20 07:23 O2 Sat by Pulse Oximetry 93 L 03/14/20 07:23 Intake & Output: Intake & Output 03/11/20 03/12/20 03/13/20 03/14/20 11:59 11:59 11:59 11:59 Intake Total 3120 1996 921 Output Total 1550 1354 1805 Balance 1570 642 -884 Weight 112.9 kg 112.9 kg - Lab Result Diagrams: 03/14/20 04:16 03/14/20 04:16 Lab Results-Last 24 Hrs: Lab Results-Last 24 Hours 03/13/20 03/14/20 03/14/20 Range/Units 05:10 04:16 04:16 WBC 12.0 H (4.0-10.5) K/mm3 RBC 3.68 L (4.1-5.4) M/mm3 Hgb 10.4 L (12.0-16.0) gm/dl Hct 33.8 L (35-47) % MCV 91.8 (78-100) fl MCH 28.3 (26-32) pg MCHC 30.8 L (32-36) g/dl RDW 15.4 H (11.5-14.0) % Plt Count 277 (150-450) K/mm3 MPV 10.7 (7.5-11.0) fl Sodium 138 (137-145) mmol/L Potassium 4.7 (3.5-5.1) mmol/L Chloride 106 (98-107) mmol/L Carbon Dioxide 29 (22-30) mmol/L Anion Gap 7.8 (5-15) MEQ/L BUN 18 H (7-17) mg/dL Creatinine 0.91 (0.52-1.04) mg/dL Estimated GFR > 60.0 ML/MIN Glucose 90 (74-106) mg/dL Calcium 8.7 (8.4-10.2) mg/dL Total Bilirubin 0.50 (0.2-1.3) mg/dL Direct Bilirubin 0.2 (0.0-0.4) mg/dL AST 27 (14-36) U/L ALT 20 (0-35) U/L Alkaline Phosphatase 66 (38-126) U/L Serum Total Protein 6.1 L (6.3-8.2) g/dL Albumin 3.1 L (3.5-5.0) g/dL Micro Results-Entire Visit: Microbiology 03/11/20 00:34 Urine Culture - Final Urine, Void Escherichia Coli - Discharge Disposition: Home, Self-Care Condition: Stable Prescriptions: New Sulfamethoxazole/Trimethoprim [Bactrim Ds Tablet] 1 each PO BID 10 Days #20 tablet Continue Ergocalciferol (Vitamin D2) [Vitamin D] 1 mg PO DAILY Instructions: Laparoscopy, Cholecystectomy, Laparoscopic Surgery Additional Instructions: DR CLINE APPOINTMENT IN [place] AT [facility]. Follow up with: MARY VICKERS MD [Primary Care Provider] - 03/22/20 2:30 pm ABDULAZIZ CLINE [COURTESY STAFF] - 03/21/20 8:25 am () Forms: Discharge Instructions
--- NOTE | 2020-03-14 12:14 | OP ---
SURGERY DATE/TIME: 03/12/2020 0742 PREOPERATIVE DIAGNOSIS: Acute severe cholecystitis, cholelithiasis. POSTOPERATIVE DIAGNOSIS: Acute severe cholecystitis, cholelithiasis. PROCEDURE: Laparoscopic cholecystectomy, difficult. SURGEON: Dr. Basilio Blanc. ANESTHESIA: General. ESTIMATED BLOOD LOSS: 100 cc. INDICATIONS: She came in apparently night. I am not sure if the surgeon was called that night. Dr. Salter saw her yesterday and added the case on for myself today. Risks and benefits explained in detail but not limited to bleeding or infection, risk of trocar injury or hernia, risk of trocar injury or hernia, risk of bowel, bladder or blood vessel injury, bile leak, bile duct injury, retained stone or sludge possibly requiring further procedure either open or ERCP. General risk of anesthesia, deep venous thrombosis, pulmonary embolism, pneumonia, possible open procedure, possible longer hospital stay but not limited to as well as risk of bile duct injury or bile leak possibly requiring other procedures but not limited to and consent obtained. DESCRIPTION OF PROCEDURE AND FINDINGS: The patient was taken to the operating room. General anesthesia induced. Abdomen prepped and draped in the usual sterile fashion. After official time out and no disagreement with planned procedure, a transverse incision made at the supraumbilical area. Fascia grasped and pulled upward. Veress needle inserted and tested with saline. Pneumoperitoneum accomplished insufflating opening pressure of 0-15. A 5 mm right upper quadrant port placed and 11 mm epigastric port and later switched to 12 port. It later required an 11 mm given her obesity and severe inflammation required 11 mm port in the left mid abdomen with retractor. Given the severe inflammation and body habitus, difficult to grab a hold of the gallbladder. Fatty infiltrate to the liver made the procedure take an extra hour and 15 minutes requiring extra port placement and difficult given her severe cholecystitis. Slowly and carefully dissected posterior laterally to anterior fashion. Cystic duct and cystic artery slowly and carefully well skeletonized until critical view obtained both anteriorly and posteriorly. Once this was accomplished, the cystic duct was taken right at the infundibulum given the extensive inflammation. Endo-MYRON stapler was used with a vascular load. It was quite a vascular gallbladder. A small side branch off the pulsatile cystic artery clipped directly on the gallbladder wall as necessary this took some time but was slowly and carefully accomplished. Gallbladder dissected free from extensive phlegmon liver bed. Again, all of this added an extra hour and 15 minutes to hour and a half extra dissection time. Slow and careful progress was made. The gallbladder was released from final attachments, placed in the provided sac. It was necessary to enlarge the epigastric wound to allow this very large thick walled gallbladder and stones to be removed and passed off. Fascial defect closed with puncture closure device in the left mid abdomen. SAEED drain placed subhepatic space out through lateral port and sutured. The fascial defect epigastrium closed #1 Vicryl. The wound irrigated out. Skin incision stapled. Sterile dressing applied. The patient tolerated the procedure well. There were no immediate complications. A very difficult dissection particularly given her body habitus and extensive inflammation on the gallbladder but accomplished as safely as possible. Transferred to the recovery room in stable condition. I will discuss the findings with the family.
[2020-03-14 12:37] VITALS: BP 171/81; PULSE 70; O2SAT 97
== END 2020-03-14 13:15 | disposition home or self-care (01) ==
LOC: ED 23:12 → MED SURG 03-11 05:24
PROVIDERS: ADMIT Family Medicine; ATTEND Family Medicine
DX: K80.10 Calculus of gallbladder with chronic cholecystitis without obstruction (principal); N39.0 Urinary tract infection, site not specified
CPT/HCPCS: 36000; 36415; 47562; 74177; 76705; 80048; 80053; 80076; 81001; 82248; 83690; 84484; 85025; 85027; 87077; 87086; 87186; 93005; 96365; 96368; 96374; 96375; 96376; 99285; G0378; J0696; J1100; J1170; J1885; J1956; J2270; J2405; J2704; J3010; A9270-GY